=== PATIENT | female | born 1950 | race Caucasian/White ===

== ENCOUNTER 2021-09-28 12:15 | Outpatient (CLI) | payer MEDICARE, SELFPAY ==
--- NOTE | ~2021-09-28 | XR_ITS ---
EXAMINATION: XR lumbar spine 2-3V DATE: 09/28/2021 12:41 INDICATION: Low back pain TECHNIQUE: Anteroposterior and lateral views of the lumbar spine, and cone-down lateral view of the l umbosacral junction were obtained. COMPARISON: Outside hospital MRI dated 05/26/2021 FINDINGS: There is severe loss of intervertebral disc space height at L2-3 and L3-4 and moderate loss of disc space height throughout the remainder of the lumbar spine. There is no fracture. The vertebr al body heights are normal. There is severe facet osteoarthritis in the lower lumbar spine. There are 24 degrees of lumbar dextroscoliosis. IMPRESSION: 1. Severe lumbar spondylosis without acute findings. Reviewed, dictated and finalized at location B.
== END 2021-09-28 12:16 | disposition home or self-care (01) ==
PROVIDERS: PCP Pediatrics; Visit Provider Neurological Surgery
DX: M47.896 Other spondylosis, lumbar region (principal)
CPT/HCPCS: 72100

== ENCOUNTER → 2021-10-07 15:17 | Outpatient (CLI) | payer MEDICARE, SELFPAY ==
--- NOTE | ~2021-10-07 | XR_ITS ---
EXAMINATION: XR knee LT min 4V DATE: 10/07/2021 15:53 INDICATION: Left knee pain TECHNIQUE: Anteroposterior, sunrise, oblique and crosstable lateral views of the left knee were obtai yosef COMPARISON: None. FINDINGS: No fracture. Mild genu vera with severe joint space narrowing in the medial compartment of the left k nee. There is secondary remodeling of the medial side of the anterior weightbearing medial femoral co ndyle as well as the medial tibial plateau. Mild joint space narrowing and small marginal osteophyte at the patellofemoral compartment. No left knee joint effusion. IMPRESSION: 1. Severe medial and mild patellofemoral compartment osteoarthritis at the left knee. Reviewed, dictated and finalized at location A.
== END ==
PROVIDERS: PCP Nurse Practitioner Family; Visit Provider Nurse Practitioner Family
DX: M17.12 Unilateral primary osteoarthritis, left knee (principal)
CPT/HCPCS: 73564